=== PATIENT | female | born 1950 | race Caucasian/White ===

== ENCOUNTER 2017-09-11 10:32 | Day surgery (SDC) | payer MEDICARE, BC ==
[~2017-09-11] VITALS: Ht 157.5 cm; Wt 51.7 kg
[~2017-09-11 10:32] MED LIST: ASPI325 PO; ATOR20 PO; HYDR1TAB94 PO; METHI10 PO; QUINAPRIL HCTZ PO; VALA500 PO
== END 2017-09-11 22:47 | disposition home or self-care (01) ==
LOC: ORSCMMR 10:32 → ORD 11:30 → ORSCMMR 22:47
DX: K64.2 Third degree hemorrhoids (principal); K64.1 Second degree hemorrhoids; K62.5 Hemorrhage of anus and rectum; I10 Essential (primary) hypertension; E78.00 Pure hypercholesterolemia, unspecified; E03.9 Hypothyroidism, unspecified; Z87.891 Personal history of nicotine dependence; Z79.899 Other long term (current) drug therapy
CPT/HCPCS: 88304; J1100; J1885; J2250; J2405; J3010; J7120